=== PATIENT | female | born 1950 | race Caucasian/White ===

== ENCOUNTER 2020-12-07 12:28 | Emergency (ER) | payer OTHER, MEDICARE, SELFPAY ==
--- NOTE | 2020-12-07 12:34 | ED.URI ---
HPI - URI/Sore Throat General Chief Complaint: Upper Respiratory Infection Stated Complaint: sore throat/chills/cough Time Seen by Provider: 12/07/20 12:34 Source: patient and RN notes reviewed Mode of arrival: ambulatory Limitations: no limitations History of Present Illness HPI Narrative: 70 [facility]/O sinus congestion, runny nose, cough for 5 days. Over the last 3 days she has developed a sore throat. Has felt feverish. No treatment prior to arrival. Denies shortness of breath. Patient is a known asthmatic and states it does not feel the same is all in her head. Complains of bilateral ear pressure. No abdominal pain or chest pain. No nausea vomiting or diarrhea. Related Data Home Medications Medication Instructions Recorded Confirmed lansoprazole 15 mg delayed 15 mg PO DAILY 08/29/19 05/06/20 release,disintegrating tablet alendronate mg PO 12/07/20 cranberry 12/07/20 fiber 12/07/20 Allergies Allergy/AdvReac Type Severity Reaction Status Date / Time No Known Allergies Allergy Unknown Verified 05/06/20 08:57 Review of Systems Review of Systems: All systems reviewed & are unremarkable except as noted in HPI and below Constitutional: Constitutional: Reports as per HPI, Reports chills and Reports fever(s) Eyes: Eyes: Reports no additional eye complaints, Denies change in vision and Denies photophobia ENT: Reports as per HPI, Reports nasal congestion and Reports sore throat Cardiovascular: Cardiovascular: Reports no additional cardiovascular complaints and Denies chest pain Respiratory: Respiratory: Reports as per HPI, Denies chest congestion, Reports cough, Denies dyspnea and Denies wheezing Gastrointestinal: Gastrointestinal: Reports no additional gastrointestinal complaints, Denies abdominal pain, Denies nausea and Denies vomiting Musculoskeletal: Musculoskeletal: Reports no additional musculoskeletal complaints, Denies back pain, Denies myalgias, Denies arthralgias and Denies joint swelling Integumentary/Breasts: Skin/Breast: Reports system reviewed and no additional complaints, except as docu and Denies rash Neurologic: Reports system reviewed and no additional complaints, except as documented Psychiatric: Psychiatric: Reports no additional psychiatric complaints Allergic/Immunologic: Allergic/Immunologic: Reports no additional allergic/immunologic complaints PMFSH Past Medical History Medical History Anxiety Asthma Depression GERD (gastroesophageal reflux disease) Osteoarthritis Sinusitis Surgical History Surgical History H/O sinus surgery H/O tubal ligation H/O: hysterectomy Status post cervicectomy Family History Family History Mother Family history of malignant neoplasm of ovary Social History Social History Smoking status: Never smoker Second hand tobacco smoke exposure: Yes Comments At the time of my signature, I reviewed and agree with the nursing past medical, surgical, social, and family history. There is no relevant family history pertinent to the patient complaint. Exam Const: General: no acute distress, alert and ill appearing acutely Nutritional Appearance: well nourished Orientation/consciousness: patient oriented x3 Limitations: no limitations HENMT: Ears: hearing grossly normal bilaterally, external ears normal, TM's normal bilaterally and EAC's normal General nose exam: Normal external nose present, Abnormal mucous membranes and turbinates present boggy and erythematous and Nasal discharge present clear Face and sinus: normal facial exam, face symmetric and sinus tenderness frontal and maxillary Mouth: Yes Normal oral and palatal mucosa present Throat: postnasal drainage Eyes: Conjunctivae: conjunctivae normal Pupils: Equa
[2020-12-07 12:35] VITALS: BP 143/73; PULSE 99; RESP 16; TEMP 38.1; O2SAT 98
[2020-12-07] MEDS: ACETAMINOPHEN 500 MG TABLET 1000 MG PO (12:58)
[2020-12-07 13:30] VITALS: BP 135/66; PULSE 79; RESP 16; TEMP 37.2; O2SAT 98
[2020-12-09 20:32] LABS: SARS-CoV-2 RNA PCR Negative
== END 2020-12-07 13:30 | disposition home or self-care (01) ==
PROVIDERS: Emergency Provider Nurse Practitioner; PCP Family Medicine
DX: J01.40 Acute pansinusitis, unspecified (principal); J02.9 Acute pharyngitis, unspecified; Z20.822 Contact with and (suspected) exposure to COVID-19; J45.909 Unspecified asthma, uncomplicated; K21.9 Gastro-esophageal reflux disease without esophagitis; M19.90 Unspecified osteoarthritis, unspecified site
CPT/HCPCS: 87081; 87426; 87880; 99213; A9270; C9803; G0463; U0003; U0005

== ENCOUNTER 2020-12-26 07:59 | Outpatient (CLI) | payer OTHER, MEDICARE, SELFPAY ==
[2020-12-26 09:02] LABS: Basophils Absolute Auto 0.1 K/mm3 (0.0-0.1); Basophils Percent Auto 1.3 % (0.2-1.2); Eosinophils Absolute Auto 0.4 K/mm3 (0-0.3); Eosinophils Percent Auto 5.2 % (0-4.4); Hematocrit 39.9 % (37.0-47.0); Hemoglobin 12.9 g/dL (12.0-15.0); Immature Granulocyte Absolute 0.01 K/mm3 (0.00-0.031); Immature Granulocyte Percent A 0.1 % (0-0.5); Lymphocytes Absolute Auto 1.78 K/mm3 (0.9-3.2); Lymphocytes Percent Auto 25.1 % (18.3-44.2); Mean Corpuscular HGB Conc 32.3 g/dl (32-36); Mean Corpuscular Hemoglobin 28.9 pg (26-34); Mean Corpuscular Volume 89.5 fl (80-100); Mean Platelet Volume 11.7 fl (7.4-10.4); Monocytes Absolute Auto 0.7 K/mm3 (0.1-0.6); Monocytes Percent Auto 9.2 % (2.6-8.5); Neutrophils Absolute Auto 4.2 K/mm3 (1.3-6.7); Neutrophils Percent Auto 59.1 % (45.5-73.1); Platelet Count Result 324 k/mm3 (150-375); Red Blood Count 4.46 M/mm3 (4.2-5.4); Red Cell Distribution Width 12.9 % (11.5-14.5); White Blood Count 7.1 K/mm3 (4.5-10.0)
[2020-12-26 09:07] LABS: Immunoglobulin G 1111 mg/dL (700-1600)
[2020-12-28 05:30] LABS: Immunoglobulin G, Serum 976 mg/dL (600-1540); Immunoglobulin G1 585 mg/dL (382-929); Immunoglobulin G2 215 mg/dL (241-700); Immunoglobulin G3 27 mg/dL (22-178); Immunoglobulin G4 36.4 mg/dL (4.0-86.0)
== END 2020-12-26 08:00 | disposition home or self-care (01) ==
LOC: ANHLAB 08:01
PROVIDERS: PCP Family Medicine; Visit Provider Nurse Practitioner Family
DX: J45.909 Unspecified asthma, uncomplicated (principal); B99.9 Unspecified infectious disease
CPT/HCPCS: 36415; 82784; 82787; 85025

== ENCOUNTER 2021-03-25 08:31 | Outpatient (CLI) | payer OTHER, MEDICARE, SELFPAY ==
[2021-03-25 10:28] LABS: Absolute Eosinophil Count 0.8 K/mm3 (0.0-0.3)
[2021-03-29 00:10] LABS: Immunoglobulin E 155 kU/L (<=114)
== END 2021-03-25 08:32 | disposition home or self-care (01) ==
LOC: ANHLAB 08:40
PROVIDERS: PCP Family Medicine; Visit Provider Nurse Practitioner Family
DX: J45.909 Unspecified asthma, uncomplicated (principal)
CPT/HCPCS: 36415; 82785; 85048

== ENCOUNTER 2021-05-19 07:42 | Outpatient (CLI) | payer OTHER, MEDICARE, SELFPAY ==
--- NOTE | 2021-05-20 17:35 | WPDHOMESLEEP ---
Sleep Study - Home Unattended Date of Study: 05/19/21 <Guillermina Godinez DO - Last Filed: 05/20/21 17:45> Ordering Provider: Jarrett Souza APRN <Guillermina Godinez DO - Last Filed: 05/20/21 17:45> Interpreting Provider: Guillermina Godinez DO <Guillermina Godinez, DO - Last Filed: 05/20/21 17:45> Home Sleep Study Type: Apnea Link Air <Guillermina Godinez DO - Last Filed: 05/20/21 17:45> Height: 1.57 m <Guillermina Godinez DO - Last Filed: 05/20/21 17:45> Weight: 68.039 kg <Guillermina Godinez DO - Last Filed: 05/20/21 17:45> Body Mass Index: 27.4 <Guillermina Godinez DO - Last Filed: 05/20/21 17:45> Neck Circumference (inches): 14 <Guillermina Godinez DO - Last Filed: 05/20/21 17:45> Tatums: 3 <Guillermina Godinez DO - Last Filed: 05/20/21 17:45> Reason for Sleep Study unrefreshing sleep, daytime hypersomnia, morning headaches <Guillermina Godinez DO - Last Filed: 05/20/21 17:45> Sleep History The patient is a 71-year-old female with anxiety, asthma, depression, GERD, osteoarthritis and sinus issues that had a sleep study 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 The patient is currently retired. The patient states that she occasionally awakens from sleep short of breath. She frequently awakens at night with heartburn, belching or cough. He constantly snores loud enough that others complain. She frequently has trouble sleeping when she has a cold. She frequently wakes up gasping for air throughout the night. She rarely has breathing problems at night observed by others. She occasionally sweats excessively at night. She denies heart palpitations or irregular heartbeats during the night. She denies falling asleep during the day and while driving. She denies sleep paralysis, cataplexy and hypnagogic / hypnopompic hallucinations. She denies having nightmares. She occasionally has thoughts racing through her mind. She occasionally feels sad or depressed. She occasionally has anxiety. She denies noticing parts of her body jerk. She takes denies kicking during the night. She occasionally has crawling and aching feelings in her legs as well as leg pain during the night. She occasionally green to teeth during sleep but denies awakening with morning jaw pain. She denies being bothered by pain during the day but occasionally is awakened by pain during the night. She occasionally wakes up feeling stiff in the morning with sore and achy muscles. She goes to bed at 9:00 p.m. on both weekdays and weekends. She states that it takes a long time to fall asleep. She wakes up frequently throughout the night. When she wakes up, she will lay in bed or walk around the house. It can take up to 2 hours for her to fall asleep. She wakes up at 6:00 a.m. on both weekdays and weekends. She typically gets 3-4 hours of sleep per night. He does not stay in bed after waking up in the morning. She currently lives with her . She does not consume any caffeinated beverages within 2 hours of bedtime. She does not engage in physical exercise before bedtime. She does not read or watch television before falling asleep. She does not take neck is in the afternoon or the evening. She drinks 2 cups of caffeinated beverage per day. She denies tobacco, alcohol and recreational drug use. She does use [id number] sleep aids. <Guillermina Godinez DO - Last Filed: 05/20/21 17:45> [facility] Past Medical History Medical History: Medical History (Updated 05/20/21 @ 17:45 by Guillermina Godinez DO) Anxiety Asthma Depression GERD (gastroesophageal reflux disease) Insomnia Osteoarthritis Sinusitis <Guillermina Godinez DO - Last Filed: 05/20/21 17:45> Surgical History Surgical History: Surgical History H/O sinus surgery H/O tubal ligation H/O: michaels
[2021-05-20 17:45] VITALS: BMI 27.4
== END 2021-05-20 12:51 | disposition home or self-care (01) ==
LOC: ANHCSM 07:45
PROVIDERS: PCP Family Medicine; Visit Provider Nurse Practitioner Family
DX: G47.33 Obstructive sleep apnea (adult) (pediatric) (principal); G47.10 Hypersomnia, unspecified; R06.83 Snoring; R29.818 Other symptoms and signs involving the nervous system
CPT/HCPCS: 95806

== ENCOUNTER 2024-01-21 10:10 | Outpatient (CLI) | payer MEDICARE, SELFPAY ==
--- NOTE | ~2024-01-21 | CT_ITS ---
CT Scan of the Chest without Contrast: Clinical Indication: Pneumonia Technique: Contiguous sections were acquired throughout the chest without intravenous contrast. Dose reduction technique was used on this scan by utilizing automated exposure control and iterative recon struction technique. The dose-length product (DLP) was 178.53 mGy-cm. Findings: There is no evidence of any significant mediastinal, hilar or axillary lymphadenopathy. The mediastin al soft tissues appear normal. There is no evidence of pleural or pericardial effusion. The lungs are clear. No pulmonary nodules or infiltrates are noted. Images through the upper abdomen reveal no abnormalities. Impression: No significant abnormalities seen. Reviewed, dictated and finalized at location . Impression: No significant abnormalities seen.
== END 2024-01-21 10:11 | disposition home or self-care (01) ==
LOC: MICIMG 10:11
PROVIDERS: PCP Physician Assistant; Visit Provider Physician Assistant
DX: J18.9 Pneumonia, unspecified organism (principal)
CPT/HCPCS: 71250

== ENCOUNTER 2024-11-30 02:16 | Day surgery (SDC) | payer MEDICARE, SELFPAY ==
[2024-11-08 08:31] VITALS: BMI 22.6
--- OUTSIDE RECORDS SUMMARY | 2024-11-30 02:31 | XMS_ITS | Continuity of Care Document ---
Author Organization [facility] Address [address] [place] [address] Phone Care Team Providers Care Management Department Chair Name Role Phone Davis Molina Unavailable Unavailable Procedures Procedure Date Eye Exam, New Patient Refraction Advance Directives Directive Yes / No Effective Date File Name No Information Encounters Encounter Description Practice Location Reason(s) For Visit Diagnoses Date Provider Providers Copied on Encounter [facility], [address], [place], [place], [id number], [place] tel:[phone] [facility] No Information Jul-0 8-201 0 Jesse Davis. [address], [place], [address], [place]. tel:[phone] Family History Family Member Type Diagnosis Age At Onset No Information Payers Payer name Insurance type Covered alliance party ID Authoriza tijesus(s) [employer] Plan 09 [id number] Social History Type Description Quantity Date Captured Comments Sex Female Smoking Status No Information Chief Complaint And Reason For Visit No Information Reason For Referral Reason For Referral No Information History Of Present Illness Encounter Date Complaint History Of Prese nt Illness No Information Functional Status Date Functional Assessmen t No Information Instructions Date Instruction Additional Infor mation No Information Assessments Type Assessment Date No Information Patient Care Teams Name Effective Dates (start - stop) Status Members No Information
--- OUTSIDE RECORDS SUMMARY | 2024-11-30 02:31 | XMS_ITS | Clinical Summary ---
Author Organization [facility] Address [address] [place] [address] Care Team Providers Care Workshop Manager Name Role Phone No, Physician Primary Care Provider [phone] Allergies No known active allergies Social History Tobacco Use Types Packs/Day Years Used Date Smoking Tobacco: Never Assessed Personal Safety Answer Date Recorded Getting School Help Needed Not on file 07/17 Comments Unknown Sex and Gender Information Value Date Recorded Sex Assigned at Not on file Legal Sex Female 3:17 AM JOB CHECK[employer] Gender Identity Not on file Sexual Orientation Not on file Last Filed Vital Signs Vital Sign Reading Time Taken Comments Blood Pressure 101/49 10/23/2016 6:19 AM CDT Pulse 73 10/23/2016 7:30 AM CDT Temperature - - Respiratory Rate - - Oxygen Saturation - - Inhaled Oxygen Concentration - - Weight 80.1 kg (176 lb 9.4 oz) 10/22/2016 1:10 P M CDT Height 157.5 cm (5' 2.01) 10/22/2016 1:10 PM CD T Body Mass Index 32.29 10/22/2016 1:10 PM CDT Plan of Treatment Health Maintenance Due Date Last Done Comments Colon Cancer Screening-Colonoscopy 1950 Depression Screening 1950 Fall Risk Assessment 1950 Hepatitis C Screening 1950 Osteoporosis Screening-Bone Density Scan 1950 DTaP/Tdap/Td Vaccine (1 - Tdap) 1961 Hepatitis B Screening 01/12/1968 Well Visit 65+ 2015 Zoster Vaccine (2 of 3) 10/23/2015 08/28/2015 Pneumococcal vaccine 65+ (2 of 2 - PPSV23) 10/04/2018 10/04/2017 Breast Cancer Screening-Mammogram 12/25/2023 12/24/2022, 10/02/2021, 07/11/2020, Additional history exists Influenza Vaccine (Season Ended) 2025 03/25/20 15 Procedures Procedure Name Priority Date/Time Associated Diagnosis Comments SCREENING MAMMOGRAM BILATERAL W WIN Schedule Routine, Read Routine (OP Routine) 12/24/2022 9:48 AM CDT Screening mammogram, encounter for from Last 3 Months or Most Recently Relevant to Health Maintenance Results * Screening Mammogram Bilateral W Win (12/24/2022 9:48 AM CDT) Anatomical Region Laterality Modality Breast Bilateral Mammography Narrative 12/27/2022 8:48 AM CDT Mammogram Technique: Bilateral Digital Breast Tomosynthesis, Bilateral C-view 2D Screening mammogram. Views obtained: bilateral craniocaudal and bilateral mediolateral oblique. Computer Aided Detection was performed. Mammogram Findings: The present examination has been compared to prior imaging studies performed at [facility] on 11/11/2021, at [facility] on 10/02/2021, and at [facility] on 07/11/2020. There are scattered areas of fibroglandular density. There is no suspicious abnormality in either breast. Impression: There is no mammographic evidence of malignancy. Annual screening mammography is recommended. OVERALL FINAL ASSESSMENT: BI-RADS CATEGORY 1: Negative. Procedure Note Ilsa Alvarado MD - 12/27/2022 Mammogram Technique: Bilateral Digital Breast Tomosynthesis, Bilateral C-view 2D Screening mammogram. Views obtained: bilateral craniocaudal and bilateral mediolateral oblique. Computer Aided Detection was performed. Mammogram Findings: The present examination has been compared to prior imaging studies performed at [facility] on 11/11/2021, at [facility] on 10/02/2021, and at [facility] on 07/11/2020. There are scattered areas of fibroglandular density. There is no suspicious abnormality in either breast. Impression: There is no mammographic evidence of malignancy. Annual screening mammography is recommended. OVERALL FINAL ASSESSMENT: BI-RADS CATEGORY 1: Negative. us Self Screening Mammogram IMG MAMMO PROCEDURES Fi nal Result from Last 3 Months or Most Recently Relevant to Health Maintenance Insurance MEDICARE [employer] OPEN ACCESS [facility] [employer] [facility] MEDIC[facility] Care Teams Workshop Manager Relationship Specialty Start Date End Date No, Physician PCP - General 12/24/22
--- OUTSIDE RECORDS SUMMARY | 2024-11-30 02:31 | XMS_ITS | Data Portability ---
Author Organization [facility], Main Office Address [address] [place] [address] Assessment No assessment recorded. Plan of Treatment Reminders Order Date Submit Date Provider Last Modified By Organization Details Last Modified Time Details Appointments None recorded. Lab HbA1c (hemoglobi n A1c), blood 2023 024 [facility], [address] [place], [address], 09:18:27 hepatitis C Ab, serum 2023 024 [facility], [address] [place], [address], 4 09:18:27 lipid panel, serum 2023 024 [facility], [address] [facility], [place], [address], 4 13:51:26 CBC w/ auto diff 2023 024 [facility], [address] [facility], [place], [address], 4 13:51:26 TSH + free T4, serum 2023 024 [facility], [address] [facility], [place], [address], 4 13:51:26 CMP, serum or plasma 2023 024 [facility], [address] [facility], [place], [address], 4 13:51:26 vitamin D, 25-hydroxy , total, serum 2023 024 [facility], [address] [facility], [place], [address], 4 08:07:18 lipid panel, serum 2022 023 JILLIAN Not available 18:32:41 CMP, serum or plasma 2022 023 JILLIAN Not available 18:32:43 Referral gastroente rologist referral - Please call patient to schedule an appointmen t. Thank you. 2024 025 [email or web address] 2 Russell mancera MD, [address], [address], [place], [address], 5 09:53:47 Procedures None recorded. Surgeries None recorded. Imaging CT, abdomen + pelvis, w/o contrast - Please call patient to schedule. 2024 025 [facility] ([facility] Sched[facility]), [address] [facility], [place], [address], 5 11:44:32 bone density 2022 [facility], [address] [place] [address] , [place], [address], 16:32:49 XR, hand, 3 or more view 2022 [facility], [address] [place] [address] , [place], [address], 16:35:24 XR, hip + pelvis, unilateral 2022 [facility], [address] [place] [address] [place], [address], 16:30:07 Medication Orders alendronat e 70 mg tablet 2024 025 [facility]199, [address], [place], [id number], 5 09:45:57 rosuvastat in 10 mg tablet 2024 025 [facility] #39498, [address], [place], [id number], 5 09:45:56 Bactrim DS 800 mg-160 mg tablet 2024 025 [facility] #16852, [address], [place], [id number], 5 09:46:00 albuterol sulfate HFA 90 mcg/actuat ion aerosol inhaler 2024 025 [facility] #39459, [address], [place], [id number], 5 09:46:00 montelukas t 10 mg tablet 2024 025 [facility] #96711, [address], [place], [id number], 5 09:45:59 zolpidem 10 mg tablet 2024 025 [facility] #45868, [address], [place], [id number], 5 09:46:01 zolpidem 10 mg tablet 2023 024 [facility] #78354, [address], [place], [id number], 4 12:02:53 alendronat e 70 mg tablet 2023 024 [facility] #90586, [address], [place], [id number], 09:03:27 zolpidem 10 mg tablet 2022 023 [facility] #[id number], [id number], 14:46:54 Patient TargetsNo targets recorded. Patient Instructions Encounter Date Encounter Id Patient Instructions Last Modified By Organization Details Last Modified Time 11/04/2023 [id number] Follow up in 3 months Obtain Labs Prescription sent to pharmacy Get Prevnar 20 vaccine Not available 11/04/2023 09:03:20 02/14/2024 [id number] dementia rating scale-2* Not available 02/14/2024 11:56:28 alcohol misuse* Not available 02/14/2024 12:01:20 depression screening* JILLIAN Not available 02/14/2024 14:00:23 multi-dimensiona l health assessment questionnaire* JILLIAN Not available 02/14/2024 14:00:34 Personalized [facility] lt Plan and Screening Recommendations Advance Directives - Do you have one? No You have indicated that you are capable of preparing your advance care directive Advance Directives - Do we have your advance directive on file in your health record? No, please bring in a copy at your earliest convenience Primary Prevention/Interven tion (prevents or decreases the chance of common diseases from occurring) Smoking Risk: Non Smoker Alcohol Misuse Screening: Negative Weight: Appropriate continue your current weight loss efforts Physical activity: Appropriate physical activity minimum of 20-30 minutes activity that causes mild breathlessness/day Nutrition: Good Refer to attached handout DASH Diet: After Your Visit Fall Risk (screened today): Low Refer to attached handout Preventing Falls: After your Visit Vaccines Pneumococcal: No further needed Influenza: Your next one in the fall of this year Chronic Disease Risks Stroke: Low Risk I have no recommendations Heart Attack: Low risk I have no recommendations Clogging of the Arteries: Low risk I have no recommendations Diabetes: Low Risk I have no recommendations Secondary Prevention/Interven tion (detects treatable diseases before they may cause symptoms, disability, or ) Breast Cancer Screening with mammogram: Recommended today Cervical/Uterine/Ov shandra Cancer Screening: No screening necessary Osteoporosis Screening: No screening necessary Date Screening Last Performed: _03/09/2023_ Colon Cancer Screening: Colonoscopy No screening necessary Date Screening Last Performed: 11/04/2023___ Eye Disease Screening: Your next exam in: Dementia Risk: Low I have no recommendations Depression Screening: Negative Recommend follow appointment to further evaluate Not available 02/14/2024 12:01:18 Follow up in 6 months Obtain labs Tests: Referral: Recommend: Not available 02/14/2024 12:18:55 08/07/2024 [id number] Follow up in 3 months Prescriptions sent to pharmacy Tests: Complete CT scan Referral: GI-Dr. Quezada-col onoscopy Recommend: Tetanus vaccine Not available 08/07/2024 09:37:18 Reason for Referral [employer] Referral for Screening for malignant neoplasm of colon Please call patient to schedule an appointment. Thank you. Referring Physician: Rowan Garcia, Internal Medicine, Encounter Date: 08/07/2024 Results Created Date Observation Date Name Description Value Unit Range Abnormal Flag Note LastModifiedBy Organization Detail LastModifiedTime 03/09/2003/09/2023 LIPID PANEL cholesterol 214 mg/dL 140-19 9 high [facility] NSUS RECOM MENDA TION FOR TERESA STERO L: ADULT CHILD LOW RISK: <200 <170 BORDE RLINE : <200- 239 ----- HIGH RISK: >240 >200 Not Available [facility] (Lab) [address] [place], [address], 03/09/2023 18:32:41 03/09/2003/09/2023 LIPID PANEL triglyceride s 116 mg/dL 0-150 [facility] ANGEL [facility]IS NSUS REPOR T RECOM MENDA TION FOR TRIGL YCERI KATHERINE: ADULT CHILD LOW RISK: <150 ----- BODER LINE: 150-1 99 ----- HIGH RISK: >200 ----- Not Available [facility] (Lab) [address] [place], [address], 03/09/2023 18:32:41 03/09/2003/09/2023 LIPID PANEL HDL cholesterol 101 mg/dL 40- Not Available [facility] (Lab) [address] [place], [address], 03/09/2023 18:32:41 03/09/2003/09/2023 LIPID PANEL LDL cholesterol, calculated 90 mg/dL 0-130 [facility] ANGEL LUIS NSUS REPOR T RECOM MENDA TIONS FOR LDL: ADULT CHILD LOW RISK <130 <110 (OPTI MAL LDL) <100 ----- BORDE RLINE : 130-1 59 ----- HIGH RISK: >160 >130 A TRIGL YCERI DE RESUL T >400 INVAL IDATE S THE CALCU LATIO N FOR LDL FRACT IONAT ION - THE LDL RESUL T WILL NOT BE REPOR CLARE. Not Available [facility] (Lab) [address] [place], [address], 03/09/2023 18:32:41 03/09/2003/09/2023 COMPR EHENS LAXMI METAB OLIC PANEL sodium 137 mmol/ L 137-14 5 Not Available [facility] (Lab) [address] [place], [address], 03/09/2023 18:32:43 03/09/2003/09/2023 COMPR EHENS LAXMI METAB OLIC PANEL potassium 4.4 mmol/ L 3.5-5. 1 Not Available [facility] (Lab) [address] [place], [address], 03/09/2023 18:32:43 03/09/2003/09/2023 COMPR EHENS LAXMI METAB OLIC PANEL chloride 102 mmol/ L 98-107 Not Available [facility] (Lab) [address] [place], [address], 03/09/2023 18:32:43 03/09/2003/09/2023 COMPR EHENS LAXMI METAB OLIC PANEL carbon dioxide 28 mmol/ L 22-30 Not Available [facility] (Lab) [address] [place], [address], 03/09/2023 18:32:43 03/09/2003/09/2023 COMPR EHENS LAXMI METAB OLIC PANEL anion gap 11.4 mmol/ L 14-22 low Not Available [facility] (Lab) [address] [place], [address], 03/09/2023 18:32:43 03/09/2003/09/2023 COMPR EHENS LAXMI METAB OLIC PANEL glucose 99 mg/dL 70-99 Not Available [facility] (Lab) [address] [place], [address], 03/09/2023 18:32:43 03/09/2003/09/2023 COMPR EHENS LAXMI METAB OLIC PANEL BUN 9 mg/dL 8-19 Not Available [facility] (Lab) [address] [place], [address], 03/09/2023 18:32:43 03/09/2003/09/2023 COMPR EHENS LAXMI METAB OLIC PANEL creatinine 0.72 mg/dL 0.66-1 .25 Not Available [facility] (Lab) [address] [place], [address], 03/09/2023 18:32:43 03/09/2003/09/2023 COMPR EHENS LAXMI METAB OLIC PANEL GFR >60 Refer ence Range : [place] ge GFR Healt hy Adult : >60 mL/mi n/1.7 3 m2 Chron ic Kidne y Disea se: 15-60 mL/mi n/1.7 3 m2 Kidne y Failu re: <15/m L/min /1.73 m2 www.n iddk. nih.g ov The MDRD study equat ion has not been valid ated in child erik <18 years of age; pregn ant women ; the elder ly >85 years of age; or in some racia l or ethni c subgr oups, such as Hispa nics. Outsi de the valid ated ruthie eters , estim ated GFR is less accur ate, requi ring clini steffanie judgm ent on a case- by-ca se basis . Clini steffanie inter preta tion for other races and ages must be made by the clini janes. The MDRD study equat ion has not been valid ated for the evalu ation of serum creat inine relat ed to nutri alec l statu s or medic ation usage . For perso ns <18 years of age, a pedia tric GFR calcu lator is avail able on the [facility] websi te: https ://magdiel w.kid caleb.o rg/pr ofess ional s/kdo qi/gf r_cal culat or Not Available [facility] (Lab) [address] [place], [address], 03/09/2023 18:32:43 03/09/2003/09/2023 COMPR EHENS LAXMI METAB OLIC PANEL alkaline phosphatase 86 U/L 38-126 Not Available [facility] (Lab) [address] [place], [address], 03/09/2023 18:32:43 03/09/2003/09/2023 COMPR EHENS LAXMI METAB OLIC PANEL alanine aminotransfe rase 17 U/L 0-35 Not Available [facility] (Lab) [address] [place], [address], 03/09/2023 18:32:43 03/09/2003/09/2023 COMPR EHENS LAXMI METAB OLIC PANEL aspartate aminotransfe rase 31 U/L 15-37 Not Available [facility] (Lab) [address] [place], [address], 03/09/2023 18:32:43 03/09/2003/09/2023 COMPR EHENS LAXMI METAB OLIC PANEL bilirubin, total 0.60 mg/dL 0.20-1 .30 Not Available [facility] (Lab) [address] [place], [address], 03/09/2023 18:32:43 03/09/2003/09/2023 COMPR EHENS LAXMI METAB OLIC PANEL calcium 10.2 mg/dL 8.4-10 .2 Not Available [facility] (Lab) [address] [place], [address], 03/09/2023 18:32:43 03/09/2003/09/2023 COMPR EHENS LAXMI METAB OLIC PANEL total protein 7.6 g/dL 6.3-8. 2 Not Available [facility] (Lab) [address] [place], [address], 03/09/2023 18:32:43 03/09/2003/09/2023 COMPR EHENS LAXMI METAB OLIC PANEL albumin 4.5 g/dL 3.0-4. 4 high Not Available [facility] (Lab) [address] [place], [address], 03/09/2023 18:32:43 03/09/2003/09/2023 COMPR EHENS LAXMI METAB OLIC PANEL globulin 3.1 g/dL 2.6-4. 2 Not Available [facility] (Lab) [address] [place], [address], 03/09/2023 18:32:43 03/09/2003/09/2023 COMPR EHENS LAXMI METAB OLIC PANEL A/G ratio 1.5 ratio 1.0-2. 0 Not Available [facility] (Lab) [address] [place], [address], 03/09/2023 18:32:43 03/09/20 XR, hip, unila teral , 2 or 3 view [facility] [address] [place] [address] [phone] Rick t Name: NEHEMIAH CORONADO Access ion #: [id number] Sex: F : 1949 6 Dictat ed By: Airam Leon Attend ing Physic patti: ELKHAT IB, RUNDA Orderi ng Physic patti: ELKHAT IB, RUNDA Exam Date: 2022 14:01 PM Exam Name: XR HIP/PE LVIS RT 2-3V Admitt ing Diagno sis(es ): CLINIC AL INDICA TION: Pain TECHNI QUE: 3 radiog raphic views of the pelvis and right hip were obtain ed. Compar nannette: None FINDIN GS: There is no eviden ce of acute fractu re or disloc ation. Modera te degene rative joint space narrow ing of the right hip. The alignm ent is anatom ical. Soft tissue s are unrema rkable . IMPRES CHRISTY: No acute fractu re or disloc ation. Electr onical ly Signed by: Airam Leon at 2022 15:26: 53 PM Page [address] (Imaging) [address] [place], [address], 03/11/2023 10:50:23 03/09/20 23 03/09/2023 XR, hip + pelvi s, unila teral No observ ation record ed. [address] [place], [address], 03/11/2023 10:50:23 03/09/20 23 DEXA, axial skele ton [facility] [address] [place] [address] Patisandip t Name: NEHEMIAH CORONADO Access ion #: [id number] Sex: F : 1949 6 Dictat ed By: Airam Leon Attend ing Physic patti: ELKHAT IB, RUNDA Orderi ng Physic patti: ELKHAT IB, RUNDA Exam Date: 2022 14:01 PM Exam Name: XR DEXA AXIAL/ HIP/PE LVIS/S PINE Admitt ing Diagno sis(es ): INDICA TION: Postme noptaj al osteop orosis DEXA SCAN: BONE DENSIT Y REPORT : Bone minera l densit y (BMD) AP SPINE (L1-L4 ) BMD: 0.947 (Grams /cm2). T Score: -2.0 LEFT FEMORA L NECK BMD: 0.792 (Grams /cm2). T Score: -1.8 RT FEMORA L NECK BMD: 0.768 (Grams /cm2). T Score: -1.9 LEFT HIP TOTAL BMD: 0.811 (Grams /cm2). T Score: -1.6 RT HIP TOTAL BMD: 0.802 (Grams /cm2). T Score: -1.6 TOTAL BILAT HIP AV.806 (Grams /cm2). T Score: -1.6 10 YEAR FRACTU RE RISK* NA IMPRES CHRISTY: Osteop enia of lumbar spine and bilate ral hips ------ ------ ------ ------ ------ ------ ------ ------ ----- *FRAX versio n 3.08. Fractu re probab ility calcul ated for an untrea clare patien t. Fractu re probab ility may be lower if the patien t has receiv ed treatm ent. T-scor e: compar nannette by den mejia (FAHAD) to a young adult popula tion, matche d for sex and ethnic ity (used for postmrussell lucas al women and men >50 years) and classi fied by WHO criter ia. Page 1 [facility] [place] [address] [facility], [place] [address] Patien t Name: NEHEMIAH CORONADO Access ion #: [id number] Sex: F : 1949 6 Dictat ed By: Airam Leon Attend ing Physic patti: LUZ MARIA CASTRO Physic patti: LUZ MARIA ACKERMAN, RUN Exam Date: 2022 14:01 PM Exam Name: XR DEXA AXIAL/ HIP/PE LVIS/S PINE Admitt ing Diagno sis(es ): ?-1.0: normal <-1.0 to >-2.5: osteop enia ?-2.5: osteop orosis ?-2.5 plus fragil ity fractu re: severe osteop orosis Z-scor e: compar ed by SD to an age, sex, and ethnic ity popula tion (used for premen opausa l women, men <50 years, and childr en instea d of T-scor e WHO criter ia 4) <-2.0: below expect ed range/ low bone densit y for age, and a cause should be sought Electr onical ly Signed by: Airam Leon at 2022 15:28: 59 PM Page [address] (Imaging) [address] [place], [address], 03/11/2023 10:50:24 03/09/20 23 03/09/2023 bone densi ty No observ ation record ed. [address] [place], [address], 03/11/2023 10:50:24 03/09/20 23 XR, hand, 3 or more view [facility] [place] [address] [place] [address] Patien t Name: NEHEMIAH CORONADO Access ion #: [id number] Sex: F : 1949 6 Dictat ed By: Tamara Long Attend ing Physic patti: LOLA AVILES Orderi antoinette Physic patti: LUZ MARIA ACKERMAN RUNDA Exam Date: 2022 14:01 PM Exam Name: XR HAND BILAT 3V Admitt ing Diagno sis(es ): CLINIC AL INDICA TION: Pain TECHNI QUE: 3 radiog raphic views of the bilate ral hand were obtain ed. Compar nannette: None FINDIN GS/ IMPRES CHRISTY: There is no eviden ce of acute fractu re or disloc ation. There is severe osteoa rthros is of the fourth and fifth proxim al interp halang eal joints . There is severe osteoa rthros is of the 1st throug h 5th bilate ral distal interp halang eal joints . There is severe osteoa rthros is of the right third proxim al interp halang eal joint with subcho ndral lucenc ies. There is no radiop aque foreig n body. Electr onical ly Signed by: Tamara Long at 2022 15:34: 13 PM Page [email or web address] [place] [address] (Imaging) [address] [place], [address], 03/11/2023 10:50:25 03/09/20 23 03/09/2023 XR, hand, 3 or more view No observ ation record ed. [email or web address] [facility] [address] [place] [address], [place], [address], 03/10/2023 12:46:02 10/15/19 24 10/15/2023 XR, chest No observ ation record ed. [email or web address] [facility] [address] [place], [address], 10/19/2023 14:41:59 10/15/19 24 10/15/2023 CT, abdom en, w/wo contr ast No observ ation record ed. [email or web address] [facility] [address] [place], [address], 10/19/2023 14:42:15 08/09/19 25 08/08/2024 imagi ng/di agnos tic resul t No observ ation record ed. JILLIAN [facility] [address] [place], [address], 08/08/2024 15:41:05 Result Notes Documentation Provider Name and Address Organization Details Recorded Time Xr, Hip, Unilateral, 2 Or 3 View : [facility] [address] [address] Patient Name: NEHEMIAH ARROYO Sex: F : 1950 Dictated By: Maninder Leon Attending Physician: LOLA DALAL Ordering Physician: LOLA DALAL Exam Date: 03/09/2023 14:01 PM Exam Name: XR HIP/PELVIS RT 2-3V Admitting Diagnosis(es): CLINICAL INDICATION: Pain TECHNIQUE: 3 radiographic views of the pelvis and right hip were obtained. Comparison: None FINDINGS: There is no evidence of acute fracture or dislocation. Moderate degenerative joint space narrowing of the right hip. The alignment is anatomical. Soft tissues are unremarkable. IMPRESSION: No acute fracture or dislocation. Page 1 Bryanna corado [facility] [facility] 03/11/2023 10:50:23 Dexa, Axial Skeleton : [address] [address] Patient Name: NEHEMIAH ARROYO Sex: F : 1950 Dictated By: Maninder Leon Attending Physician: LOLA DALAL Ordering Physician: LOLA DALAL Exam Date: 03/09/2023 14:01 PM Exam Name: XR DEXA AXIAL/HIP/PELVIS/SPINE Admitting Diagnosis(es): INDICATION: Postmenopausal osteoporosis DEXA SCAN: BONE DENSITY REPORT: Bone mineral density (BMD) AP SPINE (L1-L4) BMD: 0.947 (Grams/cm2). T Score: -2.0 LEFT FEMORAL NECK BMD: 0.792 (Grams/cm2). T Score: -1.8 RT FEMORAL NECK BMD: 0.768 (Grams/cm2). T Score: -1.9 LEFT HIP TOTAL BMD: 0.811 (Grams/cm2). T Score: -1.6 RT HIP TOTAL BMD: 0.802 (Grams/cm2). T Score: -1.6 TOTAL BILAT HIP AV.806 (Grams/cm2). T Score: -1.6 10 YEAR FRACTURE RISK* NA IMPRESSION: Osteopenia of lumbar spine and bilateral hips - *FRAX version 3.08. Fracture probability calculated for an untreated patient. Fracture probability may be lower if the patient has received treatment. T-score: comparison by standard deviation (SD) to a young adult population, matched for sex and ethnicity (used for postmenopausal women and men >50 years) and classified by WHO criteria. Page [address] [address] Patient Name: NEHEMIAH ARROYO Sex: F : 1950 Dictated By: Maninder Leon Attending Physician: MULUGETA CASTRO Ordering Physician: LOLA DALAL Exam Date: 03/09/2023 14:01 PM Exam Name: XR DEXA AXIAL/HIP/PELVIS/SPINE Admitting Diagnosis(es): ?-1.0: normal <-1.0 to >-2.5: osteopenia ?-2.5: osteoporosis ?-2.5 plus fragility fracture: severe osteoporosis Z-score: compared by SD to an age, sex, and ethnicity population (used for premenopausal women, men <50 years, and children instead of T-score WHO criteria 4) <-2.0: below expected range/low bone density for age, and a cause should be sought Page 2 BHAVANI Burks Manjinder [place] [employer] [facility] 03/11/2023 10:50:24 Xr, Hand, 3 Or More View : [address] [address] Patient Name: NEHEMIAH ARROYO Sex: F : 1950 Dictated By: Tamara Long Attending Physician: LOLA DALAL Ordering Physician: LOLA DALAL Exam Date: 03/09/2023 14:01 PM Exam Name: XR HAND BILAT 3V Admitting Diagnosis(es): CLINICAL INDICATION: Pain TECHNIQUE: 3 radiographic views of the bilateral hand were obtained. Comparison: None FINDINGS/ IMPRESSION: There is no evidence of acute fracture or dislocation. There is severe osteoarthrosis of the fourth and fifth proximal interphalangeal joints. There is severe osteoarthrosis of the 1st through 5th bilateral distal interphalangeal joints. There is severe osteoarthrosis of the right third proximal interphalangeal joint with subchondral lucencies. There is no radiopaque foreign body. Page 1 Bryanna corado, [place] [facility] 03/11/2023 10:50:25 Problems Name Problem SNOMED Code Status Onset Date Resolution Date Notes Provider Name and Address Organization Details Recorded Time Acute bronchitis 41362084 Active Not Available [facility] 4 21:30:21 Mammograph y abnormal 813438773 Active 2021 Not Available [facility] 4 21:30:21 Insomnia 745679940 Active Rowan Garcia APRN [address], [address], [place], [address] , [employer] [facility] 4 11:45:28 Asthma 820017467 Active ORQUIDEA Hoang [address], [place], [address] , [employer] [facility] 4 11:45:14 Gastroesop hageal reflux disease 949163542 Active ORQUIDEA Hoang [address], [address], [place], [address] , [employer] 4 11:45:22 Increased blood pressure 93299562 Active ORQUIDEA Hoang [address], [address], [place], [address] , [employer] [facility] [employer] 4 11:45:25 Acute vaginitis 38703553 Active Not Available [facility] 4 21:30:21 Depressive disorder 72694574 Active Rowan Garcia APRN [address], [address], [place], [address] , [facility] [employer] [facility] 4 11:45:18 Strain of trapezius muscle 496292065 Active Not Available [facility] 4 21:30:22 Anxiety 81297217 Active Rowan Garcia APRN [address], [address], [place], [address] , [employer] [facility] 4 11:45:10 Upper respirator y infection 28000805 Active Not Available [facility] 4 21:30:22 Tenderness of breast 89875316 Active Not Available [facility] 4 21:30:22 Osteoporos is 32611513 Active Rowan Garcia APRN [address], [address], [place], [address] , [employer] [facility] 4 11:45:31 Tinea corporis 46418475 Active Not Available [facility] 4 21:30:22 Pain of right hip joint 9636834814236 02 Active 2022 Not Available [facility] 4 21:30:21 Pain of bilateral hands 7492496080816 9109 Active 2022 Not Available [facility] 4 21:30:21 Persistent insomnia 100689697 Active 2022 ORQUIDEA Hoang [address], [place], [address] , [employer] [facility] 4 11:45:40 Hyperlipid emia 73435614 Active 2022 Rowan Garcia APRN [address], [address], [place], [address] , [employer] [facility] 4 11:45:20 Pneumonia 056621553 Active ORQUIDEA Hoang [address], [place], [address] , [employer] [facility] 4 11:43:23 Acute cystitis 18805999 Active Rowan Garcia APRN [address], [address], [place], [address] , [employer] [facility] 4 11:43:24 Urinary tract infectious disease 47130264 Active Rowan Garcia APRN [address], [address], [place], [address] , [employer] [facility] 4 11:43:24 Acute exacerbati on of chronic obstructiv e pulmonary disease 334070479 Active Rowan Garcia APRN [address], [address], [place], [address] , [employer] [facility] [employer] [facility] 4 11:43:49 Chronic obstructiv e pulmonary disease 20171388 Active 2023 Rowan Garcia APRN [address], [address], [place], [address] , [employer] [facility] [employer] [facility] 4 08:58:51 Hypertrigl yceridemia 376983996 Active 2023 Rowan Garcia APRN [address], [address], [place], [address] , [employer] [facility] [employer] [facility] 4 12:41:20 Osteoarthr itis of hip 078548880 Active 2023 Rowan Garcia APRN [address], [address], [place], [address] , [employer] [facility] 4 11:49:58 Abdominal pain 19656277 Active 2024 Rowan Garcia APRN [address], [address], [place], [address] , [employer] [facility] [employer] [facility] 5 09:34:41 Acute urinary tract infection 781314155 Active 2024 Rowan Garcia APRN [address], [address], [place], [address] , [employer] [facility] [employer] [facility] 5 09:35:22 Notes:Some problems listed i n Document: #[id number] could not be added to this patient's chart. Please review this document and add these problems to the patient's chart manually as needed. Problem Notes None recorded. Procedures Surgical History Date Name Laterality Status Provider Name and Address Organization Details Recorded Time 02/14/20 24 Medicare Wellness CPT Code, subsequent completed Rowan Garcia APRN [address], [address], [place], [address], [employer] 02/05/2024 16:10:52 hysterectomy completed Eva Reyes MA [employer] 11/04/2023 08:36:34 hernia repair completed Eva Reyes MA [employer] 11/04/2023 08:38:37 Imaging Results None recorded. Procedure Notes None recorded. Medical Equipment None Reported. Allergies Allergen ID Allergen Name Allergen Category Reaction Reaction Severity Criticality Documentation Date Start Date Code Code System Note Provider Name and Address Organization Details Recorded Time 34237 No known allergy (situatio n) Not available Not available Not available Not available 10/31/2023 21395 6003 SNOMED Rowan Garcia APRN [address], [address], [place], [address], [employer] 11:43:01 No known drug allergies Medications Name Sig Start Date Stop Date Status Note LastModified by Organization Details LastModified Time cyclobenzap rine 10 mg tablet Take 1 tablet 3 times a day by oral route. active Not Available Not Available No t Available prednisone 10 mg tablet Take by oral route 4pills daily x 3 days, 3 pills daily x 3 days , 2 pills daily x 3 days and 1 pill daily x 3 days then stop 04/25 completed Not Available Not Available Not Available doxycycline hyclate 100 mg capsule TK ONE C PO BID FOR 5 DAYS 04/25 completed Not Available Not Available Not Available ipratropium 0.5 mg-albutero l 3 mg (2.5 mg base)/3 mL nebulizatio n soln 3 mL by inhalatio n route. 10/14 completed Not Available Not Available Not Available diphenhydra mine 50 mg capsule 50 mg by oral route. 10/17 completed Not Available Not Available Not Available ketoconazol e 200 mg tablet Take 1 tablet every day by oral route. active Not Available Not Available No t Available oxybutynin chloride ER 10 mg tablet,exte nded release 24 hr TK 1 T PO QD 04/07 completed Not Available Not Available Not Available azithromyci n 250 mg tablet TAKE 1 TABLET BY MOUTH DAILY 11/03 completed Not Available Not Available Not Available fluconazole 150 mg tablet TK 1 T PO TODAY active Not Available Not Available No t Available valacyclovi r 1 gram tablet TK 2 TS PO Q 12 H FOR 1 DAY 04/07 completed Not Available Not Available Not Available hydrocodone 5 mg-acetamin ophen 325 mg tablet TK 1 T PO Q 6 H PRN P 03/09 completed Not Available Not Available Not Available Isovue-370 76 % intravenous solution 100 mL by intraven. route. 10/15 completed Not Available Not Available Not Available Medrol (Angel) 4 mg tablets in a dose pack FPD 03/09 completed Not Available Not Available Not Available prednisone 20 mg tablet TAKE 2 TABLETS BY MOUTH DAILY 11/03 completed Not Available Not Available Not Available alendronate 70 mg tablet TAKE 1 TABLET BY MOUTH 1 TIME A WEEK DIRECTED active Not Available Not Available No t Available prednisone 5 mg tablet 10/04 completed Not Available Not Available Not Available permethrin 5 % topical cream 03/09 completed Not Available Not Available Not Available metronidazo le 500 mg tablet TK 1 T PO Q 6 H X 10 DAYS 03/09 completed Not Available Not Available Not Available ciprofloxac in 500 mg tablet TK 1 T PO BID 04/07 completed Not Available Not Available Not Available sulfamethox azole 800 mg-trimetho prim 160 mg tablet TAKE 1 TABLET BY MOUTH EVERY 12 HOURS FOR 7 DAYS DIRECTED active Not Available Not Available No t Available tramadol 50 mg tablet TAKE 1 TABLET BY MOUTH EVERY 6 HOURS 04/25 completed Not Available Not Available Not Available acetaminoph en 500 mg tablet 500 mg by oral route. 10/14 completed Not Available Not Available Not Available triamcinolo ne acetonide 0.1 % topical cream APPLY TO RASH ON NECK AND TRUNK BID 03/09 completed Not Available Not Available Not Available oxycodone-a cetaminophe n 5 mg-325 mg tablet TK 1 T PO Q 4 H PRN P 03/09 completed Not Available Not Available Not Available ceftriaxone 1 gram solution for injection 1000 mg by injection route. 10/15 completed Not Available Not Available Not Available potassium chloride 20 mEq oral packet 40 milliequi valents by oral route. 10/18 completed Not Available Not Available Not Available Protonix 40 mg intravenous solution 40 mg by intraven. route. 10/18 completed Not Available Not Available Not Available dicyclomine 20 mg tablet TK 1 T PO Q 6 H PRF ABDOMINAL PAIN 03/09 completed Not Available Not Available Not Available cephalexin 500 mg capsule TK 1 C PO Q 8 H FOR 10 DAYS 03/09 completed Not Available Not Available Not Available nystatin 100,000 unit/gram topical cream SOHAM EXT AA BID 03/09 completed Not Available Not Available Not Available clotrimazol e-betametha sone 1 %-0.05 % topical cream SOHAM AA AND SURROUNDI NG AREAS OF SKIN BID QAM AND IN THE EVENING active Not Available Not Available No t Available nystatin-tr iamcinolone 100,000 unit/g-0.1 % topical cream APPLY TO THE AFFECTED AREAS BID IN THE MORNING AND THE EVENING active Not Available Not Available No t Available azithromyci n 500 mg intravenous solution 500 mg by intraven. route. 10/15 completed Not Available Not Available Not Available docusate sodium 100 mg capsule 100 mg by oral route. 10/18 completed Not Available Not Available Not Available magnesium citrate oral solution 04/07 completed Not Available Not Available Not Available montelukast 10 mg tablet TAKE 1 TABLET BY MOUTH EVERY DAY DIRECTED active Not Available Not Available No t Available mupirocin 2 % topical ointment APPLY TO AFFECTED OPEN AREAS BID 03/09 completed Not Available Not Available Not Available sodium chloride 0.9 % intravenous solution 1000 mL by intraven. route. 10/14 completed Not Available Not Available Not Available polyethylen e glycol 3350 17 gram/dose oral powder 04/07 completed Not Available Not Available Not Available levofloxaci n 500 mg tablet TK 1 T PO ONCE D X 10 DAYS 03/09 completed Not Available Not Available Not Available zolpidem 10 mg tablet TAKE 1/2 TABLET BY MOUTH EVERY NIGHT AT BEDTIME active Not Available Not Available No t Available albuterol sulfate HFA 90 mcg/actuati on aerosol inhaler INHALE 2 PUFFS BY MOUTH EVERY 4 HOURS NEEDED active Not Available Not Available No t Available cefdinir 300 mg capsule TAKE 1 CAPSULE BY MOUTH TWICE DAILY 11/03 completed Not Available Not Available Not Available ipratropium bromide 0.02 % solution for inhalation U 2.5 ML VIA NEB Q 6 H PRF SOB OR WHZ active Not Available Not Available No t Available metoclopram bert 10 mg tablet 03/09 completed Not Available Not Available Not Available enoxaparin 40 mg/0.4 mL subcutaneou s syringe 40 mg by sub-q route. 10/18 completed Not Available Not Available Not Available Premarin 0.625 mg/gram vaginal cream INSERT A FINGERTIP AMT VAG 2 NIGHTS Q WEEK 04/07 completed Not Available Not Available Not Available rosuvastati n 10 mg tablet TAKE 1 TABLET BY MOUTH ONCE DAILY active Not Available Not Available No t Available Mag-Al Plus 200 mg-200 mg-20 mg/5 mL oral suspension 30 mL by oral route. 10/18 completed Not Available Not Available Not Available nitrofurant oin monohydrate /macrocryst als 100 mg capsule 04/07 completed Not Available Not Available Not Available ibandronate 150 mg tablet TAKE 1 TABLET BY MOUTH EVERY MONTH 04/07 completed Not Available Not Available Not Available sodium chloride 0.9 % intravenous piggyback 50 mL by intraven. route. 10/15 completed Not Available Not Available Not Available Zostavax (PF) 19,400 unit/0.65 mL subcutaneou s suspension ADM 0.65ML SC UTD 04/07 completed Not Available Not Available Not Available Symbicort 160 mcg-4.5 mcg/actuati on HFA aerosol inhaler medicatio n:Symbico rt 160-4.5 mcg/actua tion HFA Aerosol Inhaler d ose:0.0 route: f requency: 11/03 completed Not Available Not Available Not Available peg 3350 240 gram-electr olytes 22.72 gram-6.72 g-5.84 g powdr for soln 04/07 completed Not Available Not Available Not Available ketorolac 30 mg/mL injection solution Inject 1 mL every day by intraveno us route. 04/25 completed Not Available Not Available Not Available Solu-Medrol (PF) 40 mg/mL solution for injection 80 mg by injection route. 10/17 completed Not Available Not Available Not Available Solu-Medrol (PF) 125 mg/2 mL solution for injection 125 mg by injection route. 10/14 completed Not Available Not Available Not Available Vios Aerosol Delivery System 10/04 completed Not Available Not Available Not Available Trelegy Ellipta 200 mcg-62.5 mcg-25 mcg powder for inhalation INHALE 1 PUFF BY MOUTH ONCE DAILY active Not Available Not Available No t Available Vitals Date Recorded Body height Body mass index (BMI) Body weight Body temperature Heart rate Oxygen saturation Oxygen saturation in Arterial blood by Pulse oximetry Systolic And Diastolic Provider Name and Address Organization Details Last Updated DateTime 5 157.48 cm 22.3 kg/m2 64493.2 7 g 96.8 [degF] 71 /min 97 % 97 % 120/72 mm[Hg] Poornima Norton MA [facility] [employer] [facility] 5 09:23:47 Date Recorded Body height Body mass index (BMI) Body weight Body temperature Heart rate Oxygen saturation Oxygen saturation in Arterial blood by Pulse oximetry Systolic And Diastolic Provider Name and Address Organization Details Last Updated DateTime 4 157.48 cm 26 kg/m2 16359.1 2 g 95.9 [degF] 97 /min 98 % 98 % 124/72 mm[Hg] Eva Reyes MA [facility] [employer] [facility] 4 08:31:07 Date Recorded Body height Body mass index (BMI) Body weight Body temperature Heart rate Oxygen saturation Oxygen saturation in Arterial blood by Pulse oximetry Systolic And Diastolic Provider Name and Address Organization Details Last Updated DateTime 4 157.48 cm 25.8 kg/m2 60003.5 2 g 97.6 [degF] 70 /min 97 % 97 % 120/70 mm[Hg] Eva Reyes MA [facility] [employer] [facility] 4 11:22:10 Date Recorded Body weight Body mass index (BMI) Body height Body temperature Heart rate Oxygen saturation Oxygen saturation in Arterial blood by Pulse oximetry Systolic And Diastolic Provider Name and Address Organization Details Last Updated DateTime 3 47575.5 6 g 29.8 kg/m2 157.48 cm 97.4 [degF] 74 /min 96 % 96 % 118/76 mm[Hg] Katie rosado CMA [facility] [employer] [facility] 3 14:08:55 Social History Question Answer Notes LastModified by Organizat ion Details LastModified Time Tobacco Smoking Status Never Smoker Eva Reyes MA null, [facility] [employer] [facility] 11/04/2023 08:35:00 What Is Your Level Of Caffeine Consumption? None Information not available 11/04/2023 In The 14 Days Before Symptom Onset, Have You Had Close Contact With A Laboratory-confir med COVID-19 While That Case Was Ill? No Information not available 11/04/2023 In The 14 Days Before Symptom Onset, Have You Had Close Contact With A Person Who Is Under Investigation For COVID-19 While That Person Was Ill? No Information not available 11/04/2023 What Type Of Diet Are You Following? REGULAR Information not available 11/04/2023 Have There Been Any Changes To Your Family Or Social Situation? No Information no t available 11/04/2023 Do You Use Insect Repellent Routinely? No Information not available 11/04/2023 [facility] Information not available 11/04/2023 What Was The Date Of Your Most Recent Tobacco Screening? 08/07/2024 Information not available 08/07/2024 How Many Children Do You Have? 2 Information not available 11/04/2023 Do You Have Any Pets? Yes Information not available 11/04/2023 What Is Your Relationship Status? Information not available 11/04/2023 Do You Use Your Seat Belt Or Car Seat Routinely? Yes Information not available 11/04/2023 Do You Have Smoke And Carbon Monoxide Detectors In Your Home? Yes Information not available 08/07/2024 Are You Passively Exposed To Smoke? No Information no t available 02/14/2024 Are There Any Smokers In Your House? No Information not available 02/14/2024 Do You Use Sunscreen Routinely? No Information not available 11/04/2023 Have You Recently Traveled Abroad? No Information not available 11/04/2023 Do You Have Any Dietary Restrictions? No Information not available 11/04/2023 Sex: Unknown Functional Status Question Answer Note LastModified by Organizat ion Details LastModified Time Do you use any illicit or recreational drugs? No Information not available 11/04/2023 Do you or have you ever used any other forms of tobacco or nicotine? No Information not available 11/04/2023 What is your level of alcohol consumption? None Information not available 11/04/2023 Are you currently employed? No Retired Information not available 11/04/2023 What is your exercise level? None Information not available 11/04/2023 Mental Status Question Answer Note LastModified by Organization D etails LastModified Time Do you feel stressed (tense, restless, nervous, or anxious, or unable to sleep at night)? [id number] Information not available 11/04/2023 Family History Relationship Description Onset Age of this Age Resolved Age Notes LastModified by Organization Details LastModified Time Unspecified Relation Malignant tumor of breast [email or web address] Not available 2023 08:33:21 Medical History No medical history recorded. Gynecological History Statement/Question Response How many live births 2 Date of Last Colonoscopy Date of Last Mammogram Date of LMP Most Recent Bone Density Date of Last Pap Current Control Method Hysterectom y Obstetrics History GPAL:G 2 P 0 2 0 1 Type Value Multiple Births 0 Full Term 0 Induced 0 Spontaneous 0 Premature 2 Living 1 Ectopics 0 Total 2 Immunizations Vaccine Type Date Status Note Provider Nam e and Address Organization Details Recorded Time Influenza, high-dose, quadrivalent, PF 1 completed Rowan Garcia APRN [address], [address], [place], [address], [facility] [employer] [facility] 11/04/2023 08:50:48 Influenza, adjuvanted, quadrivalent, PF 3 completed Rowan Garcia APRN [address], [address], [place], [address], [facility] [employer] [facility] 11/04/2023 08:50:48 Influenza, adjuvanted, quadrivalent, PF 2 completed Rowan Garcia APRN [address], [address], [place], [address], [facility] [employer] [facility] 11/04/2023 08:50:48 COVID-19, mRNA, LNP-S, PF, 100 mcg/0.5mL dose or 50 mcg/0.25mL dose [address], [place], [address], [facility] [employer] [facility] 11/04/2023 08:50:48 COVID-19, mRNA, LNP-S, PF, 100 mcg/0.5mL dose or 50 mcg/0.25mL dose 1 completed [address], [place], [address], [facility] [employer] [facility] 11/04/2023 08:50:48 COVID-19, mRNA, LNP-S, PF, 100 mcg/0.5mL dose or 50 mcg/0.25mL dose 1 completed Rowan Garcia APRN [address], [address], [place], [address], [facility] [employer] [facility] 11/04/2023 08:50:48 COVID-19, mRNA, LNP-S, bivalent, PF, 50 mcg/0.5 mL or 25mcg/0.25 mL dose 2 completed ORQUIDEA [address], [place], [address], [facility] [employer] [facility] 11/04/2023 08:50:48 COVID-19, mRNA, LNP-S, PF, shannan-sucrose, 30 mcg/0.3 mL 3 completed ORQUIDEA [address], [place], [address], [facility] [employer] [facility] 11/04/2023 08:50:48 zoster live 6 completed ORQUIDEA [address], [address], [place], [address], [facility] [employer] [facility] 11/04/2023 08:50:48 zoster recombinant 4 completed ORQUIDEA [address], [address], [place], [address], [facility] [employer] [facility] 02/14/2024 11:44:19 zoster recombinant 4 completed ORQUIDEA [address], [place], [address], [facility] [employer] [facility] 02/14/2024 11:44:19 Pneumococcal conjugate PCV20, polysaccharide [id number] conjugate, adjuvant, PF 4 completed ORQUIDEA [address], [address], [place], [address], [facility] [employer] [facility] 02/14/2024 11:44:19 RSV, bivalent, protein subunit RSVpreF, diluent reconstituted, 0.5 mL, PF 4 completed ORQUIDEA Hoang [address], [place], [address], [facility] [employer] [facility] [employer] [facility] 02/14/2024 11:44:19 COVID-19, mRNA, LNP-S, PF, shannan-sucrose, 30 mcg/0.3 mL 4 completed ORQUIDEA [address], [address], [place], [address], [facility] 02/14/2024 11:44:19 Influenza, high-dose, trivalent, PF 4 completed Rowan Paradaner, [employer] [address], [address], [place], [address], [facility] 02/14/2024 11:44:19 Influenza, high-dose, quadrivalent, PF 0 completed Not Available [facility] 07/12/2023 21:30:22 Influenza, high-dose, trivalent, PF 9 completed Not Available [facility] 07/12/2023 21:30:22 pneumococcal polysaccharide PPV23 9 completed Not Available [facility] 07/12/2023 21:30:22 Pneumococcal conjugate PCV 13 8 completed Not Available [facility] 07/12/2023 21:30:22 Influenza, high-dose, trivalent, PF 5 completed Not Available [facility] 07/12/2023 21:30:22 Past Encounters Encounter ID Performer Location Encounter Start Date Encounter Closed Date Diagnosis/Indication Diagnosis SNOMED-CT Code Diagnosis ICD10 Code Diagnosis Note [id number] Lola Corrales MD [facility] [place] [id number] [facility] [address] 03/09/2023 13:50:21 03/09/2023 14:48:08 Pain of right hip joint 5099838154 01540 M25.551 depending on xrays may need PT Osteoporosis 48269073 M8 1.0 Pain of bi lateral hands 5727923758 5140405 M79.641 Persistent insomnia 1919 45749 G47.09 Hyperlipidemia 25687959 E78.5 [id number] Yanira culp MD [facility] Internal Med [facility] [address] [place] [address] 11/04/2023 08:22:13 11/04/2023 09:07:05 Hyperlipidemia 26591842 E78.5 Osteoporosis 31811479 M8 1.0 [id number] Yanira culp MD [facility] Internal Med [address] [facility] [address] [facility] [facility] [address] [place] [address] 02/14/2024 11:06:12 02/14/2024 12:23:12 Adult health examination 903704824 Z00.00 Screening for disorder 986904816 Z13.9 Hyperlipidemia 26350685 E78.5 Persistent insomnia 1919 47834 G47.09 Hepatitis C screening 41 1854706 Z11.59 [id number] Yanira culp MD [facility] [address] [facility] [address] [facility] [facility] [address] [place] [address] 08/07/2024 09:06:10 08/07/2024 09:52:33 Screening for malignant neoplasm of colon 198474937 Z12.11 Abdominal pain 54790020 R10.9 Acute urin deedee tract infection 700754055 N39.0 Hypertriglyceridemia 302 411349 E78.1 Persistent insomnia 1919 60965 G47.09 Osteoporosis 30401241 M8 1.0 Asthma 018647701 J45.90 9 Health Concerns Section Related Observation LastModified by Organization Detai ls LastModified Time None Recorded Concern Status LastModified by Organization Details LastModified Time None Recorded Advance Directives Directive None Recorded Payers Insurance Date Sequence Insurance Name Policy Number Policy Coyle Covered Member ID Coyle Member ID Guarantor Name 03/01/2023 1 [employer] - [place] - OPEN ACCESS Medardo Cruz [id number] Nehemiah A Cruz 08/04/2024 1 [place] Nehemiah A Cruz [id number] Nehemiah A Cruz 08/07/2024 2 [email or web address]ANCE Nehemiah A Cruz [id number] Nehemiah Sushil Cruz Notes Date Note Type Note Provider Name and Address Organization Details Recorded Time 03/09/2023 text/html Here today for r e establishing care. Has asthma and diverticulitis. Has pain in right inguinal area to right hip. It can get really bad.Has arthritis of hands. Wants to check for osteoporosis. She can not bend her right middle finger d/t swelling and stiffness of PIP joint. Lola Corrales MD [address], [facility] [address], [place], [address], [employer] [facility] [employer] [facility] 03/10/2023 08:49:28 11/04/2023 text/html Nehemiah presents to day to establish care as a new patient. She states that she was in the hospital for pneumonia. She states that she was in for 4 days. She was discharged on 2 antibiotics and prednisone. She is requesting a pneumonia vaccine although she has had the PPV23 and PCV13. She states that she had lost 20 pounds since June due to stress at home. Rowan Garcia APRN [address], [facility] [address], [place], [address], [employer] 11/04/2023 09:07:53 02/14/2024 text/html Nehemiah presents to day for Medicare annual wellness and 3 month follow up. She states that she had all of her vaccines in the past months. She states that she was seeing her telemetry rn for check up after pneumonia and everything is good. 11/04/2023Nehemiah presents today to establish care as a new patient. She states that she was in the hospital for pneumonia. She states that she was in for 4 days. She was discharged on 2 antibiotics and prednisone. She is requesting a pneumonia vaccine although she has had the PPV23 and PCV13. She states that she had lost 20 pounds since June due to stress at home. Rowan Garcia APRN [address], [facility] [address], [place], [address], [employer] [facility] [employer] 02/14/2024 12:21:15 08/07/2024 text/html Nehemiah presents to day for 6 month follow up. She states that she hasn't been feeling not so great. She states that she has abdominal pain rating 2 on 1-10 pain scale. She states that sometimes it is worse than others. She states that she also has a urinary tract infection. She states that she cannot remember the last time she had a colonoscopy. 02/14/2024Abbinatalie presents today for Medicare annual wellness and 3 month follow up. She states that she had all of her vaccines in the past months. She states that she was seeing her telemetry rn for check up after pneumonia and everything is good. 11/04/2023Nehemiah presents today to establish care as a new patient. She states that she was in the hospital for pneumonia. She states that she was in for 4 days. She was discharged on 2 antibiotics and prednisone. She is requesting a pneumonia vaccine although she has had the PPV23 and PCV13. She states that she had lost 20 pounds since June due to stress at home. Rowan Garcia, SMALL BUSINESS SALES REPRESENTATIVE [address], [facility] [address], [place], [address], [place] - [facility] 08/07/2024 09:46:04 OBGyn Episode No OBEpisode recorded.
--- OUTSIDE RECORDS SUMMARY | 2024-11-30 02:31 | XMS_ITS | Referral Summary ---
Author Organization [facility] al Address [address] [place] [address] Care Team Providers Care Wagon Winder Name Role Phone No, Physician Primary Care Provider [phone] Allergies No known active allergies Social History Tobacco Use Types Packs/Day Years Used Date Smoking Tobacco: Never Assessed Personal Safety Answer Date Recorded Getting School Help Needed Not on file 07/17 Comments Unknown Sex and Gender Information Value Date Recorded Sex Assigned at Not on file Legal Sex Female 3:17 AM [employer] Gender Identity Not on file Sexual Orientation [...] 10/22/2016 1:10 PM CDT Plan of Treatment Not on file Procedures Procedure Name Priority Date/Time Associated Diagnosis [...] compared to prior imaging studies performed at [facility] on 11/11/2021, at [facility] on 10/02/2021, and at [facility] on 07/11/2020. There are scattered areas of [...] compared to prior imaging studies performed at [facility] on 11/11/2021, at [facility] on 10/02/2021, and at [facility] on 07/11/2020. There are scattered areas of fibroglandular density. There is no suspicious abnormality in either breast. Impression: There is no mammographic evidence of malignancy. Annual screening mammography is recommended. OVERALL FINAL ASSESSMENT: BI-RADS CATEGORY 1: Negative. us Self Screening Mammogram IMG MAMMO PROCEDURES Fi nal Result from Last 3 Months or Most Recently Relevant to Health Maintenance Insurance MEDICARE [employer] OPEN ACCESS [facility] [employer] OPEN ACCESS MEDICARE [facility] Address: [facility] [address] [place] [address] [facility] Care Teams Wagon Winder Relationship Specialty Start Date End Date No, Physician PCP - General 12/24/22
[2024-11-30 06:52] VITALS: BP 118/63; PULSE 86; RESP 18; TEMP 36.7; O2SAT 99; BMI 21.7
[2024-11-30] MEDS: LACTATED RINGERS 1,000 ML 150 ML IV CONT (07:04)
--- NOTE | 2024-11-30 08:18 | PM.IMHP ---
H&P: HPI History of Present Illness Date/Time: 11/30/24 08:18 Chief Complaint: Family history of colon polyps Narrative: This patient has family history of colorectal polyps. her brother, who is currently 70 years old, was Recently found to have premalignant polyps. Review of Systems Review of Systems: All systems reviewed & are unremarkable except as noted in HPI and below PMFSH Past Medical History Medical History Insomnia Depression Asthma Anxiety Sinusitis Osteoarthritis GERD (gastroesophageal reflux disease) Surgical History Surgical History H/O sinus surgery H/O tubal ligation Status post cervicectomy H/O: hysterectomy Family History Family History Mother Family history of malignant neoplasm of ovary Social History Social History Smoking status: Never smoker Second hand tobacco smoke exposure: Yes Alcohol intake: never Substance use: never Substance use type: does not use Living arrangements: with family Spiritual care concerns: No Meds Home Medications and Allergies Home Medications ?Medication ?Instructions ?Recorded ?Confirmed ?Type cranberry 12/07/20 01/07/24 History fiber 12/07/20 01/07/24 History albuterol sulfate 2.5 mg/3 mL 2.5 mg (3 mL) inhalation QID PRN 12/12/20 11/08/24 Rx (0.083 %) solution for nebulization shortness of breath or wheezing #360 mL alendronate 70 mg tablet 70 mg PO WEEKLY 01/07/24 11/30/24 History fluticasone fur. 200 mcg-umeclid 1 inh inhalation Q24H #60 ea 01/07/24 11/30/24 Rx 62.5 mcg-vilant 25 mcg inhalat.powder (Trelegy Ellipta) montelukast 10 mg tablet 10 mg PO DAILY #30 tabs 01/07/24 11/30/24 Rx rosuvastatin 10 mg tablet 10 mg PO DAILY 01/07/24 11/30/24 History fluticasone fur. 200 mcg-umeclid 200-62.5-25 mcg Blister With 06/08/24 11/08/24 Sample 62.5 mcg-vilant 25 mcg Device#2 Samples inhalat.powder (Trelegy Ellipta) zolpidem 10 mg tablet 5 mg PO QHS 06/08/24 11/30/24 History albuterol sulfate 90 mcg/actuation See Rx Instructions .Route 07/25/24 11/08/24 Rx aerosol inhaler .COMPLEX #8.5 grams Allergies Allergy/AdvReac Type Severity Reaction Status Date / Time No Known Allergies Allergy Unknown Verified 11/30/24 06:51 Vital Signs Vital Signs - 24 hr 11/30/24 06:52 Temperature 98.1 F Pulse Rate 86 Respiratory Rate 18 Blood Pressure 118/63 Pulse Oximetry 99 Oxygen Delivery Room Air Exam Const: General: cooperative and healthy appearing Resp: Effort & Inspection: normal respiratory effort and able to speak in complete sentences Auscultation: clear to auscultation bilaterally Cardio: Rate: regular rate Rhythm: regular rhythm GI: Inspection: normal to inspection GI Palp: No No hepatosplenomegaly present Auscultation: normal bowel sounds Rectal Exam: deferred Skin: General skin exam: normal color Psych: Appearance: grossly normal Mental Status: mental status grossly normal Assessment and Plan Assessment and plan (1) Family history of polyps in the colon: Code(s): Z83.719 - Family history of colon polyps, unspecified Status: Acute Assessment and Plan: The patient is deemed a good candidate for the procedure. Consent signed. Will proceed.
--- NOTE | 2024-11-30 08:20 | P.PNAN_ITS ---
Anes - Initial Pre Proc Eval Procedure: Operation Date: 11/30/24 08:30 Proposed Procedures p Screening Colonoscopy - Tyree Kilgore MD Date/Time: 11/30/24 08:20 Surgeon: Tyree Kilgore MD Pre Op Diagnosis: Screening Patient Data Age: 74 Gender: F Height: 1.55 m Weight: 52.2 kg Last Vital Signs Temp 98.1 F 11/30/24 06:52 Pulse 86 11/30/24 06:52 Resp 18 11/30/24 06:52 BP 118/63 11/30/24 06:52 Pulse Ox 99 11/30/24 06:52 O2 Del Method Room Air 11/30/24 06:52 Allergies Allergy/AdvReac Type Severity Reaction Status Date / Time No Known Allergies Allergy Unknown Verified 11/30/24 06:51 Home Medications ?Medication ?Instructions ?Recorded ?Confirmed ?Type cranberry 12/07/20 01/07/24 History fiber 12/07/20 01/07/24 History albuterol sulfate 2.5 mg/3 mL 2.5 mg (3 mL) inhalation QID PRN 12/12/20 11/08/24 Rx (0.083 %) solution for nebulization shortness of breath or wheezing #360 mL alendronate 70 mg tablet 70 mg PO WEEKLY 01/07/24 11/30/24 History fluticasone fur. 200 mcg-umeclid 1 inh inhalation Q24H #60 ea 01/07/24 11/30/24 Rx 62.5 mcg-vilant 25 mcg inhalat.powder (Trelegy Ellipta) montelukast 10 mg tablet 10 mg PO DAILY #30 tabs 01/07/24 11/30/24 Rx rosuvastatin 10 mg tablet 10 mg PO DAILY 01/07/24 11/30/24 History fluticasone fur. 200 mcg-umeclid 200-62.5-25 mcg Blister With 06/08/24 11/08/24 Sample 62.5 mcg-vilant 25 mcg Device#2 Samples inhalat.powder (Trelegy Ellipta) zolpidem 10 mg tablet 5 mg PO QHS 06/08/24 11/30/24 History albuterol sulfate 90 mcg/actuation See Rx Instructions .Route 07/25/24 11/08/24 Rx aerosol inhaler .COMPLEX #8.5 grams Patient hx anesthesia problems: none Family hx anesthesia problems: none Results Review: All pre-operative results and documents have been reviewed as part of the pre- operative evaluation. [facility] Past Medical History Medical History Insomnia Depression Asthma Anxiety Sinusitis Osteoarthritis GERD (gastroesophageal reflux disease) Surgical History Surgical History H/O sinus surgery H/O tubal ligation Status post cervicectomy H/O: hysterectomy Family History Family History Mother Family history of malignant neoplasm of ovary Social History Social History Smoking status: Never smoker Second hand tobacco smoke exposure: Yes Alcohol intake: never Substance use: never Substance use type: does not use Living arrangements: with family Spiritual care concerns: No Anes - Eval Final PreProcedure Day of Procedure 11/30/24 08:20 Patient weight: normal Lungs: normal air movement Airway: Mallampati scale class II Neurological: alert and oriented Last oral intake: >/= 8 hours ASA classification: III Emergent: no Anesthetic plan: proceed Anesthesia type and monitoring: general GIVS and standard monitoring Results Review: All pre-operative results and documents have been reviewed as part of the pre- operative evaluation. Hyperlipidemia, SALLY on dental appliance only. Anxiety/depression. Informed Consent: The patient's anesthetic plan and its attendant risks and benefits were discussed with the patient/family/POA. Questions were solicited and answers provided to the satisfaction of the patient/family/POA.
--- NOTE | 2024-11-30 08:42 | S_PTH ---
PATIENT: Nancy Arroyo LOC: [facility]#:[id number] AGE/SX: 74/F ROOM: RE11/30/[address]: Tyree Kilgore MD : 1950 BED: DIS: 11/30/2024 SPEC #: [id number] RECD: 11/30/24 13:03 STATUS: KAYKAY REQ #: [id number] [place]: 11/30/24 08:[address]: Tyree Kilgore DEPT: [facility] Surgical RECD BY: Justina Veloz ENTERED: 11/30/24 13:03 SP TYPE: Surgical OTHR DR: Rowan Garcia, SHOE STITCHER ODD Tissues: A - Colon Polypectomy Procedures: Hematoxylin and Eosin Stain Gross and Microscopic Level 4
[2024-11-30 08:50] VITALS: BP 123/67; PULSE 77; RESP 15; O2SAT 99
[2024-11-30 09:00] VITALS: BP 145/72; PULSE 66; RESP 26; O2SAT 100
[2024-11-30 09:10] VITALS: BP 114/69; PULSE 76; RESP 18; O2SAT 100
== END 2024-11-30 09:18 | disposition home or self-care (01) ==
PROVIDERS: PCP Nurse Practitioner Family; Referring Provider Nurse Practitioner Family; Visit Provider Internal Medicine Gastroenterology
PROC: 0DJD8ZZ Inspection of Lower Intestinal Tract, Via Natural or Artificial Opening Endoscopic (ICD-10-PCS; CPT 45378; principal; 2024-11-30 08:30)
DX: Z12.11 Encounter for screening for malignant neoplasm of colon (principal); D12.2 Benign neoplasm of ascending colon; K63.5 Polyp of colon; K57.30 Diverticulosis of large intestine without perforation or abscess without bleeding; E78.5 Hyperlipidemia, unspecified; G47.33 Obstructive sleep apnea (adult) (pediatric); G47.00 Insomnia, unspecified; F32.A Depression, unspecified; J45.909 Unspecified asthma, uncomplicated; F41.9 Anxiety disorder, unspecified; K21.9 Gastro-esophageal reflux disease without esophagitis; M19.90 Unspecified osteoarthritis, unspecified site; Z79.51 Long term (current) use of inhaled steroids; Z79.83 Long term (current) use of bisphosphonates; Z98.890 Other specified postprocedural states; Z98.51 Tubal ligation status; Z83.719 Family history of colon polyps, unspecified; Z80.41 Family history of malignant neoplasm of ovary
CPT/HCPCS: 45385; 88305; J2003; J2704; J7120